=== PATIENT | male | born 1965 | race African-American/Black ===

== ENCOUNTER 2017-09-13 10:06 | Inpatient (IN) | payer OTHER ==
[2017-09-13 12:13] VITALS: BMI 25.9
--- NOTE | 2017-09-13 13:57 | HP ---
CIWA Score - CIWA Score Nausea/Vomitin Muscle Tremors: 3 Anxiety: 4-Mod. Anxious/Guarded Agitation: 2 Paroxysmal Sweats: No Perspiration Orientation: 0-Oriented Tacttile Disturbances: 2-Mild Itch/Numbness/Burn Auditory Disturbances: 0-None Visual Disturbances: 0-None Headache: 0-None Present CIWA-Ar Total Score: 16 Admission ROS [facility]HS - HPI Chief Complaint: "I need to stop my Alcoholism problem. I'm through." Patient is here to Detox from Alcohol. Allergies/Adverse Reactions: Allergies Allergy/AdvReac Type Severity Reaction Status Date / Time cat dander AdvReac Intermediate Itching Verified 09/13/17 13:48 History of Present Illness: Patient is a 51 YO male here to Detox from Alcohol. Patient was evaluated at [facility] earlier on in AM today for fall on [employer] in which he injured his Left Hip and Knee. X-Ray of Left Hip Negative for fracture, Results of X-Ray of Left Knee not included in Discharge paperwork from [facility] ER. Patient had one previous detox admission at [facility] in 2010. Patient has also had detox admissions at [facility]) in 1999, [facility]) in 2003, in [facility]) in 2003, and [facility]) in 2016. Longest period of sobriety in recent years: 18 months (1999 - 2000). Exam Limitations: No Limitations - Ebola screening Have you traveled outside of the country in the last 21 days: No Have you had contact with anyone from an Ebola affected area: No Have you been sick,other than usual withdrawal symptoms: No Do you have a fever: No - Review of Systems Constitutional: Malaise, Changes in sleep EENT: reports: Blurred Vision, Tearing, Nose Congestion, Sinus Pressure Respiratory: reports: Productive cough Cardiac: reports: Palpitations GI: reports: Nausea, Vomiting : reports: No Symptoms Reported Musculoskeletal: reports: Joint Pain, Joint Swelling, Muscle Pain, Joint Stiffness Integumentary: reports: No Symptoms Reported Neuro: reports: Numbness (Bilateral Feet.), Seizure (15 known since 2008, due to ETOH withdrawal. Last episode: 2008.), Tingling (Bilateral Feet.), Tremors Endocrine: reports: No Symptoms Reported Hematology: reports: No Symptoms Reported Psychiatric: reports: Judgement Intact, Mood/Affect Appropiate, Orientated x3, Anxious, Depressed (No previous treatment.) Other Systems: Reviewed and Negative Patient History - Patient Medical History Hx Anemia: No Hx Asthma: No Hx Chronic Obstructive Pulmonary Disease (COPD): No Hx Cancer: No Hx Cardiac Disorders: Yes (Does not know name of diagnosis.) Hx Congestive Heart Failure: No Hx Hypertension: No Hx Hypercholesterolemia: No Hx Pacemaker: No HX Cerebrovascular Accident: No Hx Seizures: Yes (alcohol related - last episode was in 2008) Hx Dementia: No Hx Diabetes: No Hx Gastrointestinal Disorders: No Hx Liver Disease: No Hx Genitourinary Disorders: No Hx Sexually Transmitted Disorders: No Hx Renal Disease (ESRD): No Hx Thyroid Disease: No Hx Human Immunodeficiency Virus (HIV): No (Last tested: 07/2016: NEGATIVE.) Hx Hepatitis C: No (Last tested: 07/2016: NEGATIVE.) Hx Depression: Yes (No previous treatment.) Hx Suicide Attempt: No (PATIENT DENIES CURRENT SI / HI.) Hx Bipolar Disorder: No Hx Schizophrenia: No Other Medical History: Arthritis in Left Knee. - Patient Surgical History Past Surgical History: No Hx Neurologic Surgery: No Hx Cataract Extraction: No Hx Cardiac Surgery: No Hx Lung Surgery: No Hx Breast Surgery: No Hx Breast Biopsy: No Hx Abdominal Surgery: No Hx Appendectomy: No Hx Cholecystectomy: No Hx Genitourinary Surgery: No Hx Section: No Hx Orthopedic Surgery: Yes (Right Knee repair, 2001.) Other Surgical History: DENIES. Anesthesia Reaction: No - PPD History Previous Implant?: Yes Documented Results: Negative w/o proof Implanted On Prior R Admission?: No PPD to be Administered?: Yes - Reproductive History Patient is a Female of Child Bearing Age (11 -55 yrs old): No (PATIENT IS MALE.) - Smoking Cessation Smoking history: Former smoker Have you smoked in the past 12 months: No If you are a former smoker, when did you quit?: Approx. 9 years ago. Cigars Per Day: 0 Hx Chewing Tobacco Use: No Initiated information on smoking cessation: No - Substance & Tx. History Hx Alcohol Use: Yes Hx Substance Use: Yes Substance Use Type: Alcohol Hx Substance Use Treatment: Yes (Previous Detox admissions (Last: [facility], 2016).) - Substances Abused Alcohol-vodka Route: Oral Frequency: Daily Amount used: 2 pts. Age of first use: 10 Date of Last Use: 09/12/17 Family Disease History - Family Disease History Family Disease History: Heart Disease: Sister (Murmur.), CA: Mother (Partial Colectomy.), Other: Mother, Brother (Alcohol.) Admission Physical Exam [facility] - Vital Signs Vital Signs: Vital Signs - 24 hr 09/13/17 12:09 Temperature 100.2 F H Pulse Rate 109 H Respiratory 20 Rate Blood Pressure 141/79 - Physical General Appearance: Yes: Nourished, Appropriately Dressed, Mild Distress, Tremorous, Sweating, Anxious HEENTM: Yes: Hearing grossly Normal, Normocephalic, Normal Voice, JULIA, Pharynx Normal Respiratory: Yes: Chest Non-Tender, Lungs Clear, No Respiratory Distress, No Accessory Muscle Use Neck: Yes: No masses,lesions,Nodules, Supple, Trachea in good position Breast: Yes: Breast Exam Deferred Cardiology: Yes: Regular Rhythm, Regular Rate, S1, S2, Tachycardia Abdominal: Yes: Normal Bowel Sounds, Non Tender, Flat, Soft Genitourinary: Yes: Within Normal Limits Back: Yes: Decreased Range of Motion Musculoskeletal: Yes: Gait Steady, Joint Stiffness, Joint swelling (Left Knee ( Recent Injury).) Extremities: Yes: Tremors, Swelling (Noted in bilateral lower legs and feet. Patient reports this to be due to history of Cardiovascular Abnormality ( uncertain about name of diagnosis).) Neurological: Yes: Fully Oriented, Alert, Normal Mood/Affect, Normal Response Integumentary: Yes: Normal Color, Warm, Moist Lymphatic: Yes: Within Normal Limits - Diagnostic (1) Alcohol dependence with uncomplicated withdrawal Current Visit: Yes Status: Acute (2) History of cardiovascular disorder Current Visit: Yes Status: Chronic Comment: Patient uncertain about name of diagnosis. (3) History of recent fall Current Visit: Yes Status: Acute Comment: Injury to Left Hip and Left Knee. (4) Depression (emotion) Current Visit: Yes Status: Suspected Qualifiers: Depression Type: unspecified Qualified Code(s): F32.9 - Major depressive disorder, single episode, unspecified (5) History of seizures Current Visit: Yes Status: Chronic Comment: ETOH-Related. Cleared for Admission [facility] - Detox or Rehab [facility] Level of Care: Medically Managed Detox Regimen/Protocol: Librium [facility] Breath Alcohol Content Breath Alcohol Content: 0 Urine Drug Screen - Results Drug Screen Negative: Yes
[2017-09-13] MEDS ORDERED: LOPERAMIDE HCL 2 MG CAPSULE PO PRN (14:36)
[2017-09-13] MEDS ORDERED: MAGNESIUM HYDROX 2400MG/30ML ORAL SUSPENSION 30 ML CUP PO PRN (14:36)
[2017-09-13] MEDS ORDERED: MAGNESIUM CITRATE 300 ML BOTTLE PO PRN (14:36)
[2017-09-13] MEDS ORDERED: chlordiazePOXIDE HCL 25 MG CAPSULE PO PRN (14:36)
[2017-09-13] MEDS ORDERED: P-EPHED 60MG/TRIPROLIDI 2.5MG TABLET PO PRN (14:36)
[2017-09-13] MEDS ORDERED: IBUPROFEN 400 MG TABLET (FP) PO PRN (14:36)
[2017-09-13] MEDS ORDERED: MAG HYDROX/AL HYDROX/SIMETH 30 ML UNIT-DOSE CUP PO PRN (14:36)
[2017-09-13] MEDS ORDERED: chlordiazePOXIDE HCL 25 MG CAPSULE PO ONE (15:35)
[2017-09-13] MEDS: CARVEDILOL 3.125 MG TABLET (FP) PO SCH ×2 (17:35→22:18)
[2017-09-13] MEDS: chlordiazePOXIDE HCL 25 MG CAPSULE PO SCH ×2 (17:39→22:18)
[2017-09-13] MEDS: ACETAMINOPHEN 325 MG TABLET (FP) PO PRN (21:02)
[2017-09-13] MEDS ORDERED: MELATONIN 5 MG TABLETS PO PRN (22:00)
[2017-09-13] MEDS: GABAPENTIN 300 MG CAPSULE (FP) PO SCH (22:18)
[2017-09-13] MEDS: THIAMINE HCL 100 MG TABLET (FP) PO SCH (22:18)
[2017-09-13] MEDS: AMMONIUM LACTATE 12% LOTION 225 GM BOTTLE TP SCH (22:40)
[2017-09-14 01:24] LABS: URINE APPEARANCE CLEAR; URINE BILIRUBIN NEGATIVE (<2.0 mg/dL); URINE BLOOD 1+ (NEGATIVE); URINE COLOR YELLOW; URINE GLUCOSE (UA) NEGATIVE (NEGATIVE); URINE KETONE TRACE (NEGATIVE); URINE LEUK ESTERASE NEGATIVE (NEGATIVE); URINE NITRITE NEGATIVE (NEGATIVE); URINE UROBILINOGEN NEGATIVE mg/dL (0.2-1.0)
[2017-09-14 01:42] LABS: URINE PROTEIN 2+ (NEGATIVE)
[2017-09-14 01:55] LABS: URINE BACTERIA RARE /hpf (NONE SEEN)
[2017-09-14] MEDS: GABAPENTIN 300 MG CAPSULE (FP) PO SCH ×3 (05:04→22:18)
[2017-09-14] MEDS: chlordiazePOXIDE HCL 25 MG CAPSULE PO SCH ×4 (05:04→22:18)
[2017-09-14] MEDS: ACETAMINOPHEN 325 MG TABLET (FP) PO PRN (05:06)
[2017-09-14] MEDS: CARVEDILOL 3.125 MG TABLET (FP) PO SCH ×2 (10:38→22:18)
[2017-09-14] MEDS: PRENATAL VITAMINS W/ FOLIC ACID TABLET (FP) PO SCH (10:38)
--- NOTE | 2017-09-14 10:38 | EKG ---
Test Reason : Blood Pressure : / mmHG Vent. Rate : 092 BPM Atrial Rate : 092 BPM P-R Int : 162 ms QRS Dur : 092 ms QT Int : 350 ms P-R-T Axes : 039 012 021 degrees QTc Int : 432 ms NORMAL SINUS RHYTHM WITH SINUS ARRHYTHMIA ANTERIOR INFARCT (CITED ON OR BEFORE 13-SEP-2017) ABNORMAL ECG WHEN COMPARED WITH ECG OF 13-SEP-2017 17:42, NO SIGNIFICANT CHANGE WAS FOUND Confirmed by VALE ESPITIA, NEHA ([id number]) on 09/14/2017 10:38:25 AM Referred By: Confirmed By:NEHA COLLAZO MD
--- NOTE | 2017-09-14 10:38 | EKG ---
Test Reason : Blood Pressure : / mmHG Vent. Rate : 115 BPM Atrial Rate : 115 BPM P-R Int : 158 ms QRS Dur : 100 ms QT Int : 344 ms P-R-T Axes : 060 022 052 degrees QTc Int : 475 ms SINUS TACHYCARDIA CANNOT RULE OUT ANTERIOR INFARCT , AGE UNDETERMINED ABNORMAL ECG NO PREVIOUS ECGS AVAILABLE Confirmed by NEHA COLLAZO MD ([id number]) on 09/14/2017 10:38:29 AM Referred By: Confirmed By:NEHA COLLAZO MD
[2017-09-14] MEDS: guaiFENesin/D-METHORPHAN HB 10 ML UNIT-DOSE CUPS PO PRN (10:41)
[2017-09-14] MEDS: AMMONIUM LACTATE 12% LOTION 225 GM BOTTLE TP SCH ×2 (10:42→22:18)
[2017-09-14 11:12] LABS: HEMATOCRIT 39.9 % (35.4-49); HEMOGLOBIN 12.9 GM/dL (11.7-16.9); MCHC 32.4 g/dl (32.0-35.9); MEAN CELL VOLUME 98.6 fl (80-96); MEAN PLT VOLUME 8.1 fl (7.5-11.1); PLATELET COUNT 119 K/MM3 (134-434); RBC 4.04 M/mm3 (4.00-5.60); RDW 13.4 % (11.9-15.9); WHITE BLOOD COUNT 13.8 K/mm3 (4.0-10.0)
[2017-09-14 11:28] LABS: CHLORIDE 96 mmol/L (98-107); SODIUM 133 mmol/L (136-145)
[2017-09-14 11:39] LABS: ALBUMIN 3.5 g/dl (3.4-5.0); ANION GAP 7 (8-16); BILIRUBIN,TOTAL 1.5 mg/dL (0.2-1.0); BLOOD UREA NITROGEN 14 mg/dL (7-18); CALCIUM 8.7 mg/dL (8.5-10.1); CO2 30 mmol/L (21-32); CREATININE 0.8 mg/dL (0.7-1.3); GLUCOSE,RANDOM 112 mg/dL (74-106); SGOT/AST 80 U/L (15-37); SGPT/ALT 52 U/L (12-78); TOT PROT 7.3 g/dl (6.4-8.2)
--- NOTE | 2017-09-14 11:55 | CONSULT ---
[facility] Psychiatric Consult - Data Date of interview: 09/14/17 Admission source: [facility] Identifying data: Readmission to [facility] for this 51 y/o AA male seeking detox treatment on for alcohol dependence.Patient is , a father of one,domiciled,unemployed and supported on Public Assistance. Substance Abuse History: Confirmed by the patient in this interview.Details in current [facility] report : Smoking history: Former smoker. Have you smoked in the past 12 months: No. If you are a former smoker, when did you quit?: Approx. 9 years ago. Cigars Per Day: 0. Hx Chewing Tobacco Use: No. Initiated information on smoking cessation: No. - Substance & Tx. History. Hx Alcohol Use: Yes. Hx Substance Use: Yes. Substance Use Type: Alcohol. Hx Substance Use Treatment: Yes (Previous Detox admissions (Last: [facility], 2016).). - Substances Abused. Alcohol-vodka. Route: Oral. Frequency: Daily. Amount used: 2 pts. Age of first use: 10. Date of Last Use: 09/12/17 Medical History: History of withdrawal-related seizures,arthritis of right knee and a heart condition (patient is not sure). Psychiatric History: Patient denies history of psychiatric hospitalizations,OPD care or suicide attempts. Physical/Sexual Abuse/Trauma History: No history. Additional Comment: Drug Screen is negative. Mental Status Exam - Mental Status Exam Alert and Oriented to: Time, Place, Person Cognitive Function: Good Patient Appearance: Well Groomed (tall stature) Mood: Hopeful, Euthymic Affect: Appropriate, Normal Range Patient Behavior: Fatigued, Appropriate, Cooperative Speech Pattern: Clear Voice Loudness: Normal Thought Process: Intact, Goal Oriented Thought Disorder: Not Present Hallucinations: Denies Suicidal Ideation: Denies Homicidal Ideation: Denies Insight/Judgement: Poor Sleep: Poorly, Difficulty falling asleep Appetite: Good Muscle strength/Tone: Normal Gait/Station: Normal Psychiatric Findings - Problem List ([place] 1, 2,3) (1) Alcohol dependence with uncomplicated withdrawal Current Visit: Yes Status: Acute (2) Insomnia Current Visit: Yes Status: Acute - Initial Treatment Plan Initial Treatment Plan: Psychoeducation.Detoxification.Sleep hygiene.Ambien 5 mg po hs prn.Patient is made aware of potential for sleep-walking.Mr Carrillo is agreable with this careplan.Observation.
[2017-09-14 12:12] LABS: ALK PHOS 85 U/L (45-117)
--- NOTE | 2017-09-14 12:49 | PN ---
[facility] CIWA - CIWA Score Nausea/Vomitin-No Nausea/No Vomiting Muscle Tremors: 4-Moderate,w/Arms Extend Anxiety: 4-Mod. Anxious/Guarded Agitation: 2 Paroxysmal Sweats: 3 Orientation: 0-Oriented Tacttile Disturbances: 3-Moderate Itch/Numb/Burn Auditory Disturbances: 0-None Visual Disturbances: 0-None Headache: 0-None Present CIWA-Ar Total Score: 16 BHS Progress Note (SOAP) Subjective: Sweating, Anxious, Diarrhea, Tremors. Objective: PATIENT A & O X 3, OBSERVED AMBULATING ON UNIT. NO ACUTE DISTRESS. 09/14/17 12:45 Vital Signs Temperature 98.9 F 09/14/17 09:29 Pulse Rate 112 H 09/14/17 09:29 Respiratory Rate 18 09/14/17 09:29 Blood Pressure 121/86 09/14/17 09:29 O2 Sat by Pulse Oximetry (%) Laboratory Tests 09/14/17 09/14/17 09/14/17 00:01 06:00 06:00 WBC 13.8 H RBC 4.04 Hgb 12.9 Hct 39.9 MCV 98.6 H MCH 32.0 MCHC 32.4 RDW 13.4 Plt Count 119 L MPV 8.1 Sodium 133 L Potassium 4.0 Chloride 96 L Carbon Dioxide 30 Anion Gap 7 L BUN 14 Creatinine 0.8 Creat Clearance w eGFR > 60 Random Glucose 112 H Calcium 8.7 Total Bilirubin 1.5 H AST 80 H ALT 52 Alkaline Phosphatase 85 Total Protein 7.3 Albumin 3.5 Urine Color Yellow Urine Appearance Clear Urine pH 9.0 H Ur Specific [place] 1.021 Urine Protein 2+ H Urine Glucose (UA) Negative Urine Ketones Trace H Urine Blood 1+ H Urine Nitrite Negative Urine Bilirubin Negative Urine Urobilinogen Negative Ur Leukocyte Esterase Negative Urine WBC (Auto) 1 Urine RBC (Auto) 10 Urine Bacteria Rare LABS NOTED. Assessment: 09/14/17 12:45 WITHDRAWAL SYMPTOMS. Plan: CONTINUE DETOX. INCREASE DAILY PO FLUID INTAKE. REPEAT CBC ON 09/16/2017 FOR ELEVATED ADMISSION WBC VALUE (PATIENT FEBRILE LAST NIGHT, CURRENTLY AFEBRILE).
[2017-09-14] MEDS: THIAMINE HCL 100 MG TABLET (FP) PO SCH (22:18)
[2017-09-14] MEDS: MENTHOL/PHENOL 1 EACH UD MM PRN (22:18)
[2017-09-14] MEDS: ZOLPIDEM TARTRATE 5 MG TABLET PO PRN (22:18)
[2017-09-15] MEDS: guaiFENesin/D-METHORPHAN HB 10 ML UNIT-DOSE CUPS PO PRN ×2 (02:17→17:43)
[2017-09-15] MEDS: GABAPENTIN 300 MG CAPSULE (FP) PO SCH ×3 (05:41→22:11)
[2017-09-15] MEDS: MENTHOL/PHENOL 1 EACH UD MM PRN (05:41)
[2017-09-15] MEDS: chlordiazePOXIDE HCL 25 MG CAPSULE PO SCH ×2 (05:41→10:12)
[2017-09-15] MEDS: AMMONIUM LACTATE 12% LOTION 225 GM BOTTLE TP SCH ×2 (10:12→22:12)
[2017-09-15] MEDS: CARVEDILOL 3.125 MG TABLET (FP) PO SCH ×2 (10:12→22:11)
[2017-09-15] MEDS: PRENATAL VITAMINS W/ FOLIC ACID TABLET (FP) PO SCH (10:12)
--- NOTE | 2017-09-15 12:57 | PN ---
S CIWA - CIWA Score Nausea/Vomitin Muscle Tremors: 3 Anxiety: 2 Agitation: 2 Paroxysmal Sweats: 3 Orientation: 0-Oriented Tacttile Disturbances: 1-Very Mild Itch/Numbness Auditory Disturbances: 0-None Visual Disturbances: 0-None Headache: 2-Mild CIWA-Ar Total Score: 16 S Progress Note (SOAP) Subjective: Chills, tremor, interrupted sleep Objective: 09/15/17 12:53 Last Vital Signs Temp Pulse Resp BP Pulse Ox 98.9 F 102 H 18 126/93 09/15/17 09:16 09/15/17 09:16 09/15/17 09:16 09/15/17 09:16 Laboratory Tests 09/14/17 09/14/17 09/14/17 00:01 06:00 06:00 WBC 13.8 H RBC 4.04 Hgb 12.9 Hct 39.9 MCV 98.6 H MCH 32.0 MCHC 32.4 RDW 13.4 Plt Count 119 L MPV 8.1 Sodium 133 L Potassium 4.0 Chloride 96 L Carbon Dioxide 30 Anion Gap 7 L BUN 14 Creatinine 0.8 Creat Clearance w eGFR > 60 Random Glucose 112 H Calcium 8.7 Total Bilirubin 1.5 H AST 80 H ALT 52 Alkaline Phosphatase 85 Total Protein 7.3 Albumin 3.5 Urine Color Yellow Urine Appearance Clear Urine pH 9.0 H Ur Specific [place] 1.021 Urine Protein 2+ H Urine Glucose (UA) Negative Urine Ketones Trace H Urine Blood 1+ H Urine Nitrite Negative Urine Bilirubin Negative Urine Urobilinogen Negative Ur Leukocyte Esterase Negative Urine WBC (Auto) 1 Urine RBC (Auto) 10 Urine Bacteria Rare RPR Titer 09/14/17 06:00 WBC RBC Hgb Hct MCV MCH MCHC RDW Plt Count MPV Sodium Potassium Chloride Carbon Dioxide Anion Gap BUN Creatinine Creat Clearance w eGFR Random Glucose Calcium Total Bilirubin AST ALT Alkaline Phosphatase Total Protein Albumin Urine Color Urine Appearance Urine pH Ur Specific [place] Urine Protein Urine Glucose (UA) Urine Ketones Urine Blood Urine Nitrite Urine Bilirubin Urine Urobilinogen Ur Leukocyte Esterase Urine WBC (Auto) Urine RBC (Auto) Urine Bacteria RPR Titer Nonreactive Labs noted: wbc 13.8, UA shows 2+ protein and 1+ blood Assessment: 09/15/17 12:55 Withdrawal symptoms Noted with leukocytosis and abnormal UA Plan: Continue detox Leukocytosis: repeat CBC Abnormal UA: encouraged to drink more water, repeat UA
[2017-09-15] MEDS: chlordiazePOXIDE 5 MG CAPSULE PO SCH ×2 (17:41→22:11)
[2017-09-15] MEDS: THIAMINE HCL 100 MG TABLET (FP) PO SCH (22:11)
[2017-09-15] MEDS: ZOLPIDEM TARTRATE 5 MG TABLET PO PRN (22:11)
[2017-09-16] MEDS: chlordiazePOXIDE 5 MG CAPSULE PO SCH ×2 (04:50→10:11)
[2017-09-16] MEDS: GABAPENTIN 300 MG CAPSULE (FP) PO SCH ×3 (05:05→22:06)
[2017-09-16] MEDS: PRENATAL VITAMINS W/ FOLIC ACID TABLET (FP) PO SCH (10:11)
[2017-09-16] MEDS: CARVEDILOL 3.125 MG TABLET (FP) PO SCH ×2 (10:12→22:06)
[2017-09-16] MEDS: AMMONIUM LACTATE 12% LOTION 225 GM BOTTLE TP SCH ×2 (10:12→22:07)
--- NOTE | 2017-09-16 11:39 | PN ---
BHS Progress Note (SOAP) Subjective: shakes sweats Objective: 09/16/17 11:37 A & O x 3 Gait steady Vital Signs Temperature 97.6 F 09/16/17 09:54 Pulse Rate 112 H 09/16/17 09:54 Respiratory Rate 20 09/16/17 09:54 Blood Pressure 131/79 09/16/17 09:54 O2 Sat by Pulse Oximetry (%) Assessment: 09/16/17 11:38 withdrawal sx Plan: continue detox For d/c tomorrow
[2017-09-16 14:16] LABS: BASO % 0.6 % (0-2.0); EOS % 0.8 % (0-4.5); HEMATOCRIT 35.1 % (35.4-49); HEMOGLOBIN 11.6 GM/dL (11.7-16.9); LYMPH % 14.4 % (8-40); MCH 32.6 pg (25.7-33.7); MCHC 33.1 g/dl (32.0-35.9); MEAN CELL VOLUME 98.3 fl (80-96); MEAN PLT VOLUME 7.6 fl (7.5-11.1); MONO % 16.1 % (3.8-10.2); NEUT % 68.1 % (42.8-82.8); PLATELET COUNT 110 K/MM3 (134-434); RBC 3.57 M/mm3 (4.00-5.60); WHITE BLOOD COUNT 6.1 K/mm3 (4.0-10.0)
--- NOTE | 2017-09-16 16:15 | PN ---
[facility] Progress Note Note: Endorsed traffic officer re swelling to pt's legs. AYESHA Paulino will follow up
[2017-09-16 16:34] LABS: URINE APPEARANCE CLEAR; URINE BILIRUBIN NEGATIVE (<2.0 mg/dL); URINE BLOOD NEGATIVE (NEGATIVE); URINE COLOR STRAW; URINE GLUCOSE (UA) NEGATIVE (NEGATIVE); URINE KETONE NEGATIVE (NEGATIVE); URINE NITRITE NEGATIVE (NEGATIVE); URINE PROTEIN NEGATIVE (NEGATIVE); URINE UROBILINOGEN NEGATIVE mg/dL (0.2-1.0)
[2017-09-16 16:57] LABS: URINE LEUK ESTERASE 1+ (NEGATIVE)
[2017-09-16 16:59] LABS: EPI CELLS RARE /HPF (FEW)
[2017-09-16] MEDS: chlordiazePOXIDE HCL 10 MG CAPSULE PO SCH ×2 (17:08→22:06)
--- NOTE | 2017-09-16 17:20 | PN ---
[facility] Progress Note Note: Patient c/o of swelling on both lower extremities. Reports recently diagnose with left ventricular hypertrophy. Reports this has been an ongoing issue, currently treated with Carvedilol and gabapentin for it.Denies vertigo, SOB, chest pain or dyspnea. Vital Signs Temperature 99.6 F 09/16/17 13:28 Pulse Rate 95 H 09/16/17 13:28 Respiratory Rate 20 09/16/17 13:28 Blood Pressure 130/85 09/16/17 13:28 O2 Sat by Pulse Oximetry (%) Laboratory Last Values WBC 6.1 K/mm3 (4.0-10.0) D 09/16/17 07:00 RBC 3.57 M/mm3 (4.00-5.60) L 09/16/17 07:00 Hgb 11.6 GM/dL (11.7-16.9) L D 09/16/17 07:00 Hct 35.1 % (35.4-49) L 09/16/17 07:00 MCV 98.3 fl (80-96) H 09/16/17 07:00 MCH 32.6 pg (25.7-33.7) 09/16/17 07:00 MCHC 33.1 g/dl (32.0-35.9) 09/16/17 07:00 RDW 13.0 % (11.9-15.9) 09/16/17 07:00 Plt Count 110 K/MM3 (134-434) L 09/16/17 07:00 MPV 7.6 fl (7.5-11.1) 09/16/17 07:00 Neutrophils % 68.1 % (42.8-82.8) 09/16/17 07:00 Lymphocytes % 14.4 % (8-40) 09/16/17 07:00 Monocytes % 16.1 % (3.8-10.2) H 09/16/17 07:00 Eosinophils % 0.8 % (0-4.5) 09/16/17 07:00 Basophils % 0.6 % (0-2.0) 09/16/17 07:00 Sodium 133 mmol/L (136-145) L 09/14/17 06:00 Potassium 4.0 mmol/L (3.5-5.1) 09/14/17 06:00 Chloride 96 mmol/L (98-107) L 09/14/17 06:00 Carbon Dioxide 30 mmol/L (21-32) 09/14/17 06:00 Anion Gap 7 (8-16) L 09/14/17 06:00 BUN 14 mg/dL (7-18) 09/14/17 06:00 Creatinine 0.8 mg/dL (0.7-1.3) 09/14/17 06:00 Creat Clearance w eGFR > 60 (>60) 09/14/17 06:00 Random Glucose 112 mg/dL (74-106) H 09/14/17 06:00 Calcium 8.7 mg/dL (8.5-10.1) 09/14/17 06:00 Total Bilirubin 1.5 mg/dL (0.2-1.0) H 09/14/17 06:00 AST 80 U/L (15-37) H 09/14/17 06:00 ALT 52 U/L (12-78) 09/14/17 06:00 Alkaline Phosphatase 85 U/L (45-117) 09/14/17 06:00 Total Protein 7.3 g/dl (6.4-8.2) 09/14/17 06:00 Albumin 3.5 g/dl (3.4-5.0) 09/14/17 06:00 Urine Color Straw 09/16/17 09:15 Urine Appearance Clear 09/16/17 09:15 Urine pH 8.0 (5.0-8.0) 09/16/17 09:15 Ur Specific [place] 1.003 (1.001-1.035) 09/16/17 09:15 Urine Protein Negative (NEGATIVE) 09/16/17 09:15 Urine Glucose (UA) Negative (NEGATIVE) 09/16/17 09:15 Urine Ketones Negative (NEGATIVE) 09/16/17 09:15 Urine Blood Negative (NEGATIVE) 09/16/17 09:15 Urine Nitrite Negative (NEGATIVE) 09/16/17 09:15 Urine Bilirubin Negative (<2.0 mg/dL) 09/16/17 09:15 Urine Urobilinogen Negative mg/dL (0.2-1.0) 09/16/17 09:15 Ur Leukocyte Esterase 1+ (NEGATIVE) H 09/16/17 09:15 Urine WBC (Auto) <1 /hpf (3-5) 09/16/17 09:15 Urine RBC (Auto) <1 /hpf (0-3) 09/16/17 09:15 Ur Epithelial Cells Rare /HPF (FEW) 09/16/17 09:15 Urine Bacteria Rare /hpf (NONE SEEN) 09/14/17 00:01 RPR Titer Nonreactive (NONREACTIVE) 09/14/17 06:00 Patient AOx3, in no apparent distress . + edema on both lower extremities , no pitting Normal HR and Rythmn No adventitious breath sounds Plan: Continue Cavedilol Low sodium diet Elevate lower extremities Continue to monitor
[2017-09-16] MEDS: THIAMINE HCL 100 MG TABLET (FP) PO SCH (22:06)
[2017-09-17] MEDS: GABAPENTIN 300 MG CAPSULE (FP) PO SCH (05:19)
[2017-09-17] MEDS: chlordiazePOXIDE HCL 10 MG CAPSULE PO SCH ×2 (06:57→10:06)
[2017-09-17 09:18] VITALS: BP 131/84; PULSE 115; TEMP 96.5
[2017-09-17] MEDS: CARVEDILOL 3.125 MG TABLET (FP) PO SCH (10:05)
[2017-09-17] MEDS: PRENATAL VITAMINS W/ FOLIC ACID TABLET (FP) PO SCH (10:05)
[2017-09-17] MEDS: AMMONIUM LACTATE 12% LOTION 225 GM BOTTLE TP SCH (10:05)
--- NOTE | 2017-09-17 14:51 | PN ---
BHS Progress Note (SOAP) Subjective: Patient denies current Detox symptoms and reports that he feels well overall. Objective: PATIENT A & O X 3, OBSERVED AMBULATING ON UNIT. NO ACUTE DISTRESS. 09/17/17 14:48 Vital Signs Temperature 96.5 F L 09/17/17 09:17 Pulse Rate 115 H 09/17/17 09:17 Respiratory Rate 18 09/17/17 09:17 Blood Pressure 131/84 09/17/17 09:17 O2 Sat by Pulse Oximetry (%) Laboratory Tests 09/14/17 09/14/17 09/14/17 00:01 06:00 06:00 WBC 13.8 H RBC 4.04 Hgb 12.9 Hct 39.9 MCV 98.6 H MCH 32.0 MCHC 32.4 RDW 13.4 Plt Count 119 L MPV 8.1 Neutrophils % Lymphocytes % Monocytes % Eosinophils % Basophils % Sodium 133 L Potassium 4.0 Chloride 96 L Carbon Dioxide 30 Anion Gap 7 L BUN 14 Creatinine 0.8 Creat Clearance w eGFR > 60 Random Glucose 112 H Calcium 8.7 Total Bilirubin 1.5 H AST 80 H ALT 52 Alkaline Phosphatase 85 Total Protein 7.3 Albumin 3.5 Urine Color Yellow Urine Appearance Clear Urine pH 9.0 H Ur Specific [place] 1.021 Urine Protein 2+ H Urine Glucose (UA) Negative Urine Ketones Trace H Urine Blood 1+ H Urine Nitrite Negative Urine Bilirubin Negative Urine Urobilinogen Negative Ur Leukocyte Esterase Negative Urine WBC (Auto) 1 Urine RBC (Auto) 10 Ur Epithelial Cells Urine Bacteria Rare RPR Titer 09/14/17 09/16/17 09/16/17 06:00 07:00 09:15 WBC 6.1 D RBC 3.57 L Hgb 11.6 L D Hct 35.1 L MCV 98.3 H MCH 32.6 MCHC 33.1 RDW 13.0 Plt Count 110 L MPV 7.6 Neutrophils % 68.1 Lymphocytes % 14.4 Monocytes % 16.1 H Eosinophils % 0.8 Basophils % 0.6 Sodium Potassium Chloride Carbon Dioxide Anion Gap BUN Creatinine Creat Clearance w eGFR Random Glucose Calcium Total Bilirubin AST ALT Alkaline Phosphatase Total Protein Albumin Urine Color Straw Urine Appearance Clear Urine pH 8.0 Ur Specific [place] 1.003 Urine Protein Negative Urine Glucose (UA) Negative Urine Ketones Negative Urine Blood Negative Urine Nitrite Negative Urine Bilirubin Negative Urine Urobilinogen Negative Ur Leukocyte Esterase 1+ H Urine WBC (Auto) <1 Urine RBC (Auto) <1 Ur Epithelial Cells Rare Urine Bacteria RPR Titer Nonreactive LABS NOTED. Assessment: 09/17/17 14:49 COMPLETION OF DETOX REGIMEN. Plan: PATIENT SCHEDULED FOR DISCHARGE FROM DETOX TODAY. PATIENT WILL GO TO [facility] ([place] FOR AFTERCARE.
--- NOTE | 2017-09-17 14:54 | DS ---
[facility] Detox Discharge Summary Admission Date: 09/13/17 Discharge Date: 09/17/17 - History Present History: Alcohol Dependence Additional Comments: PATIENT GOING TO [facility] ([place] FOR AFTERCARE. PATIENT LEFT DETOX UNIT IN STABLE MEDICAL CONDITION. Pertinent Past History: History of Seizures (ETOH-Related), Depression, History of recent Fall, Arthritis of Left Knee, History of Cardiovascular Disease, Insomnia. - Physical Exam Results Vital Signs: Vital Signs Temperature 96.5 F L 09/17/17 09:17 Pulse Rate 115 H 09/17/17 09:17 Respiratory Rate 09/17/17 09:17 Blood Pressure 131/84 09/17/17 09:17 O2 Sat by Pulse Oximetry (%) Pertinent Admission Physical Exam Findings: WITHDRAWAL SYMPTOMS. Laboratory Tests 09/14/17 09/14/17 09/14/17 00:01 06:00 06:00 WBC 13.8 H RBC 4.04 Hgb 12.9 Hct 39.9 MCV 98.6 H MCH 32.0 MCHC 32.4 RDW 13.4 Plt Count 119 L MPV 8.1 Neutrophils % Lymphocytes % Monocytes % Eosinophils % Basophils % Sodium 133 L Potassium 4.0 Chloride 96 L Carbon Dioxide 30 Anion Gap 7 L BUN 14 Creatinine 0.8 Creat Clearance w eGFR > 60 Random Glucose 112 H Calcium 8.7 Total Bilirubin 1.5 H AST 80 H ALT 52 Alkaline Phosphatase 85 Total Protein 7.3 Albumin 3.5 Urine Color Yellow Urine Appearance Clear Urine pH 9.0 H Ur Specific [place] 1.021 Urine Protein 2+ H Urine Glucose (UA) Negative Urine Ketones Trace H Urine Blood 1+ H Urine Nitrite Negative Urine Bilirubin Negative Urine Urobilinogen Negative Ur Leukocyte Esterase Negative Urine WBC (Auto) 1 Urine RBC (Auto) 10 Ur Epithelial Cells Urine Bacteria Rare RPR Titer 09/14/17 09/16/17 09/16/17 06:00 07:00 09:15 WBC 6.1 D RBC 3.57 L Hgb 11.6 L D Hct 35.1 L MCV 98.3 H MCH 32.6 MCHC 33.1 RDW 13.0 Plt Count 110 L MPV 7.6 Neutrophils % 68.1 Lymphocytes % 14.4 Monocytes % 16.1 H Eosinophils % 0.8 Basophils % 0.6 Sodium Potassium Chloride Carbon Dioxide Anion Gap BUN Creatinine Creat Clearance w eGFR Random Glucose Calcium Total Bilirubin AST ALT Alkaline Phosphatase Total Protein Albumin Urine Color Straw Urine Appearance Clear Urine pH 8.0 Ur Specific [place] 1.003 Urine Protein Negative Urine Glucose (UA) Negative Urine Ketones Negative Urine Blood Negative Urine Nitrite Negative Urine Bilirubin Negative Urine Urobilinogen Negative Ur Leukocyte Esterase 1+ H Urine WBC (Auto) <1 Urine RBC (Auto) <1 Ur Epithelial Cells Rare Urine Bacteria RPR Titer Nonreactive LABS NOTED. - Treatment Hospital Course: Detox Protocol Followed, Detoxed Safely, Responded well, Discharged Condition Good, Rehab Referral Accepted Patient has Accepted a Rehab Referral to: [facility] ([place] - Medication Discharge Medications: Ambulatory Orders Carvedilol 3.125 mg PO BID 09/13/17 Gabapentin [Neurontin -] 300 mg PO TID 09/13/17 Thiamine HCl [Vitamin B1] 100 mg PO DAILY 09/13/17 - Diagnosis (1) Alcohol dependence with uncomplicated withdrawal Status: Acute (2) History of cardiovascular disorder Status: Chronic (3) History of recent fall Status: Acute (4) Depression (emotion) Status: Chronic Qualifiers: Depression Type: unspecified Qualified Code(s): F32.9 - Major depressive disorder, single episode, unspecified (5) History of seizures Status: Chronic (6) Insomnia Status: Acute Qualifiers: Insomnia type: unspecified Qualified Code(s): G47.00 - Insomnia, unspecified - AMA Did Patient Leave Against Medical Advice: No
== END 2017-09-17 10:45 | disposition home or self-care (01) | DRG 775 ==
LOC: YASAS 10:06 → Y3N 15:21
PROVIDERS: ADMIT Internal Medicine; ATTEND Internal Medicine
PROC: HZ2ZZZZ Detoxification Services for Substance Abuse Treatment (ICD-10-PCS; principal; 2017-09-13)
DX: F10.230 Alcohol dependence with withdrawal, uncomplicated (principal); F32.9 Major depressive disorder, single episode, unspecified; G47.00 Insomnia, unspecified; D72.829 Elevated white blood cell count, unspecified; Z91.81 History of falling; S89.82XA Other specified injuries of left lower leg, initial encounter; S79.912A Unspecified injury of left hip, initial encounter; W18.39XA Other fall on same level, initial encounter; Y93.89 Activity, other specified; Y92.89 Other specified places as the place of occurrence of the external cause; Y99.8 Other external cause status; Z86.69 Personal history of other diseases of the nervous system and sense organs; Z86.19 Personal history of other infectious and parasitic diseases
CPT/HCPCS: 36415; 80053; 81003; 81015; 85025; 85027; 86593; 93005; 93010